=== PATIENT | female | born 2000 | race Hispanic/Latino ===

== ENCOUNTER 2023-08-16 10:26 | Emergency (ER) | payer OTHER, SELFPAY ==
[2023-08-16] MEDS ORDERED: Ketorolac Tromethamine 30 MG (1 mL) VIAL ONE (12:21)
== END 2023-08-16 12:41 | disposition home or self-care (01) ==
LOC: CSHERS 10:26
DX: S43.101A Unspecified dislocation of right acromioclavicular joint, initial encounter (principal); W01.0XXA Fall on same level from slipping, tripping and stumbling without subsequent striking against object, initial encounter
CPT/HCPCS: 96372; J1885

== ENCOUNTER 2023-08-17 02:39 | Emergency (ER) | payer OTHER | END 2023-08-17 03:57 | disposition home or self-care (01) | LOC: CSHERS 02:39 | DX: S00.03XA Contusion of scalp, initial encounter (principal); W18.30XA Fall on same level, unspecified, initial encounter | CPT/HCPCS: 70450 ==